=== PATIENT | male | born 1995 | race Caucasian/White ===

== ENCOUNTER 2018-07-08 11:34 | Emergency (ER) | payer OTHER ==
[2018-07-08 11:57] VITALS: BP 123/94
--- NOTE | 2018-07-08 14:05 | EDPHY ---
H & P Time Seen by Provider: 07/08/18 12:40 HPI/ROS: HPI Left ankle injury. 23-year-old male by private vehicle. This patient reports that he was drinking alcohol yesterday to celebrate him Ron's Day. He was running and accidentally tripped rolling on his left ankle. He complains of isolated left ankle pain. He states the pain is greatest around the area of the medial malleolus. He denies any significant pain in his foot. He is able to partially bear weight on the left ankle with discomfort. Denies any leg pain. He did not hit his head. No other complaints. ROS: Constitutional: No fever, no chills. No weakness. Musculoskeletal: No back pain. No neck pain. As above. No other extremity pain. Skin: No rashes. No lacerations or abrasions. Neurological: No headache. No focal weakness or altered sensation. Past medical history: Asthma. Social history: Nonsmoker. [employer]. Drinks alcohol socially. Here by himself. Physical Exam: General Appearance: Alert, no distress. This patient is responding to questions appropriately and in full sentences. This patient appears well- hydrated and well-nourished. Head: Normocephalic atraumatic. Eyes: Pupils equal and round no pallor or injection. No lid edema, erythema or injection. Left ankle and foot exam: Significant for vague swelling and tenderness on palpation over the medial malleolus. He has a small amount tenderness over the anterior distal tibial talus anatomy. No ecchymosis. There is no bony deformity or step-off noted to these areas. Mild tenderness on palpation of the lateral malleolus without soft tissue changes. No tenderness on palpation of the proximal fibula. The left foot left lower extremity are neurovascularly intact. Neurological: Motor sensory function is grossly intact. Cranial nerves are normal. Skin: Warm and dry, no rashes. No lacerations or abrasions. Extremities are symmetrical. All joints range without pain or impingement. Psychiatric: No agitation. No depression. Database: EKG: Imaging: Left ankle x-ray series: Possible avulsion type injury involving the talus. Best seen on the lateral view. Otherwise soft tissue swelling involving the medial malleolus. The mortise is appropriately aligned. Interpreted by me. Procedures: Emergency department course: Triage vital signs reviewed and are normal. Patient was sent for x-rays from triage. On my evaluation I reviewed the patient's x-rays with him. I discussed possible avulsion injury is noted above. Patient's exam and presentation are otherwise consistent with a sprain of the left ankle. The patient's left foot and ankle were placed in a [place] boot. He was provided with crutches. Plan will be to have him follow up with Orthopedics in 2-3 days for re-evaluation and further management. He feels comfortable with this plan. He was given 600 mg of ibuprofen in the emergency department. Ibuprofen dosing was discussed with him. Return to emergency department precautions thoroughly reviewed. All of his questions were answered. He was discharged from the emergency department in good condition. Differential Diagnosis: The differential diagnosis on this patient includes but is not limited to left ankle sprain, avulsion injury to the talus. Left ankle subluxation dislocation unlikely. This represents a partial list of diagnoses considered. These considerations are based on history, physical exam, past history, reassessment and diagnostic testing. Smoking Status: Never smoked Constitutional: Initial Vital Signs Temperature (C) 36.9 C 07/08/18 11:55 Heart Rate 91 07/08/18 11:55 Respiratory Rate 16 07/08/18 11:55 Blood Pressure 123/94 H 07/08/18 11:55 O2 Sat (%) 94 07/08/18 11:55 O2 Delivery Mode Room Air Allergies/Adverse Reactions: No Known Allergies Allergy (Unverified 07/08/18 11:54) Home Medications: Medication Instructions Recorded Ibuprofen 07/08/18 Departure - Departure Disposition: Home, Routine, Self-Care Clinical Impression: Left ankle sprain, Avulsion fracture of talus Condition: Good Instructions: Ankle Sprain (ED) Additional Instructions: Read and follow provided instructions. Follow-up with Orthopedics, Dr. Daniel or 1 of his associates in the next 2-3 days in clinic. Call his office for appointment time on Monday at 9:00 a.m.. Explain this is for an emergency department follow-up. Ibuprofen dosin mg every 6 hours with meals for the next 3 days only. Take only as needed for pain. Use crutches as instructed. Avoid weight-bearing to left ankle and foot. Keep boot in place went up and ambulating. Return to the emergency department for worsening worsening or uncontrolled pain , swelling, loss of sensation or weakness, discoloration or other serious concerns. Referrals: Bello Daniel MD [Medical Doctor] - As per Instructions
== END 2018-07-08 14:15 | disposition home or self-care (01) ==
DX: S92.152A Displaced avulsion fracture (chip fracture) of left talus, initial encounter for closed fracture (principal); S93.402A Sprain of unspecified ligament of left ankle, initial encounter; W18.49XA Other slipping, tripping and stumbling without falling, initial encounter; Y93.02 Activity, running; Y92.480 Sidewalk as the place of occurrence of the external cause; F10.920 Alcohol use, unspecified with intoxication, uncomplicated
CPT/HCPCS: L4386